=== PATIENT | female | born 1980 | race Caucasian/White ===

== ENCOUNTER → 2016-08-13 | Day surgery (SDC) | payer OTHER ==
[~2016-08-13] VITALS: Ht 157.5 cm; Wt 56.8 kg
[~2016-08-13] MED LIST: ACETAMINOPHEN/HYDROcodone 325 MG/5 MG TAB ONE; BUPIVACAINE HCL PF 0.5% 30 ML VIAL ONE; BUTA1CAP5 PO; DEXT 5%-NACL 0.45% 1000 ML INJ 1,000 ML IV SCH; IBUP800T23 PO; LACTATED RINGER'S 1000 ML INJ 1,000 ML ONE; LIDOCAINE HCL 2% 50 ML VIAL ONE; NAPR500T PO; NORC5TAB PO; ONDANSETRON HCL 4 MG/2 ML VIAL IV PUSH ONE; PROPOFOL 200 MG/20 ML AMP IV ONE; SODIUM CHLORIDE 0.9% FLUSH 5 ML FLUSH IVF PRN; SODIUM CHLORIDE 0.9% FLUSH 5 ML FLUSH IVF SCH; SUMA50TA2 PO; TRIAMCINOLONE ACETONIDE 40 MG/ML VIAL ONE; ceFAZolin 2 GM PREMIX 50 ML ONE
[2016-08-13 07:42] VITALS: BP 105/70; PULSE 84; RESP 16; TEMP 98.3; O2SAT 98
[2016-08-13 08:02] LABS: HEMATOCRIT 40.5 % (35.0-46.0); MEAN CELL VOLUME 85.7 FL (80.0-100.0); MEAN CORPUSCULAR HEMOGLOBIN 28.5 PG (27.0-34.0); MEAN CORPUSCULAR HGB CONC 33.2 % (32.0-36.0); PLATELET COUNT 338 TH/MM3 (150-450); RED BLOOD COUNT 4.73 MIL/MM3 (4.00-5.30); REVIEW FLAG FINAL; WHITE BLOOD COUNT 7.5 TH/MM3 (4.0-11.0)
--- NOTE | 2016-08-13 08:05 | HP.UPD ---
H&P Update Date: Aug 13, 2016 Note The Pre-Admit History and Physical Examination regarding the above named patient was reviewed (including, but not limited to, vital signs, medications, allergies, co-morbid conditions), and upon re-examination it is noted that: Indicated with "X" x - the patient's condition has not significantly changed since the last examination. [] - the patient's condition has changed since the last examination. Changes: Mayra Muhammad MD Aug 13, 2016 08:05
[2016-08-13 12:04] VITALS: PULSE 83
--- NOTE | 2016-08-13 12:25 | HHI.PR ---
Immediate Post Op Note Procedure Date: Aug 13, 2016 Pre Op Diagnosis: (1) Mass of right wrist Post Op Diagnosis: (1) Mass of right wrist Surgeon: Mayra Muhammad Refrigerator Room Clerk(s): None Procedure: Excision of mass of the right dorsal wrist. Specimen(s) removed: Mass of right wrist. Anesthesia: General Drains: None Tourniquet time (min at mmHg) 50 minutes at 200 mm Hg Patient to: PACU Patient Condition: Good Date/Time of Procedure: SEE SURGICAL CARE RECORD Mayra Muhammad MD Aug 13, 2016 12:24
[2016-08-13 12:45] VITALS: PULSE 68; TEMP 97.9
[2016-08-13 13:20] VITALS: BP 105/65; PULSE 73; RESP 14; O2SAT 99
--- NOTE | 2016-08-15 15:28 | MP ---
cc: EMILY MCKAY M.D. DATE OF SURGERY: 08/13/2016 PREOPERATIVE DIAGNOSIS Mass of right wrist. POSTOPERATIVE DIAGNOSIS Mass of right wrist. PROCEDURE Excision of mass, right wrist. ANESTHESIA General. SURGEON Dr. Mckay INDICATIONS A 36-year-old female with painful mass of the right wrist. FINDINGS There appeared to be a ganglion-type cyst on the dorsal aspect of the wrist. In addition there was an injury to the capsule and some adhesions. At the completion of the procedure there was better motion, the adhesions were lysed and the capsule was repaired. TOURNIQUET TIME 50 minutes. DETAILS OF PROCEDURE The patient was seen preoperatively where the site and side were identified and marked. The patient was then taken to the operating room, placed in a supine position. Her identity was checked against the arm band and the consent form, site and side confirmed. A timeout was called prior to beginning the procedure. The right upper extremity was prepped with Hibiclens and draped in the usual sterile fashion. The area to be incised was outlined with a marking pen as a transverse incision over the mass. The mass was outlined. The arm was then exsanguinated and the tourniquet inflated to 250 mmHg. Bupivacaine 0.5% plain was injected into the area. Once the tourniquet had been elevated to 200 mmHg, a #15 blade was used to make the incision down through the skin down to the subcutaneous tissue. Under loupe magnification superficial vessels and nerves were identified and retracted. The extensor tendons were retracted and the capsule was opened, exposing the area of the mass which was then carefully from surrounding structures and removed. There was some bony outgrowths on the dorsal aspect of the scaphoid and these were shaved down. There was some additional ganglionic tissue that was removed. There was some adhesions between the dorsal capsule and the area of the ligament between the scaphoid and the lunate and this was lysed. In addition there was a rent in the capsule which was repaired. Once the adhesions were lysed the capsule was repaired with 4-0 Vicryl. The wound was closed with 4-0 Vicryl to the dermal layer and Dermabond to the skin. The specimen itself was passed off measuring 1.1 x 0.9 cm in greatest dimension. Once the dermal layer was closed and the Dermabond was applied in several layers, Steri-Strips were applied and the tourniquet was released after 50 minutes of tourniquet time. Pressure was applied. After several minutes there was no evidence of any oozing or swelling and a dressing was applied using 4x4s, hand wrap and a palmar splint to keep the wrist immobilized. The patient was then taken from the operating room to the recovery room in satisfactory condition having tolerated the procedure well. Postoperative instructions include keeping the arm elevated, keeping it clean and dry, and returning in several days for follow-up. The patient was given a prescription for [place] and ibuprofen. MD SHAR Woodard/MAGGIE /11:28 AM /2:17 PM
== END | disposition home or self-care (01) ==
LOC: PHSDC 07:02
PROVIDERS: ATTEND Specialist
DX: M67.431 Ganglion, right wrist (principal)
CPT/HCPCS: 01810; 25111; 36415; 85027; 88304; J0690; J2405; J3010; J7120; 88305; J3301